=== PATIENT | female | born 2000 | race African-American/Black ===

== ENCOUNTER 2021-11-12 18:54 | Day surgery (SDC) | payer OTHER ==
[2021-11-12 19:26] VITALS: BMI 37.3
[2021-11-12] MEDS ORDERED: hydrALAZINE 20 MG/ML VIAL SLOW IVP PRN (20:11)
[2021-11-12] MEDS ORDERED: Lactated Ringer's 1,000 ML IV SCH (20:15)
[2021-11-12 20:43] LABS: #Monocytes 0.4 10x3/uL (0.0-1.1); #Neutrophils 5.8 10x3/uL (1.5-8.4); %Basophils 0.1 % (0.0-2.0); %Eosinophils 0.4 % (0.0-6.0); %Lymphocytes 11.3 % (18.0-47.0); %Monocytes 6.1 % (0.0-10.0); %Neutrophils 81.7 % (40.0-75.0); Hemoglobin 11.5 g/dL (12.0-15.5); Mean Corpuscular Hemoglobin 28.8 pg (27.0-33.0); Mean Corpuscular Volume 84.5 fl (81.6-98.3); Mean Platelet Volume 11.3 fl (7.4-10.4); Platelet Count 218 10x3/uL (150-450); RBC Distribution Width 13.5 % (11.5-14.5); White Blood Cell (WBC) Count 7.1 10x3/uL (3.5-10.5)
[2021-11-12] MEDS ORDERED: Ondansetron PF 4 MG/2 ML Vial ONE (20:44)
[2021-11-12 20:58] LABS: ALT (SGPT) 11 U/L (8-55); AST (SGOT) 20 U/L (5-34); Albumin 3.8 g/dL (3.5-5.0); Alkaline Phosphatase 106 U/L (40-100); Anion Gap 16 mmol/L (10-20); BUN (Urea Nitrogen) 5 mg/dL (7.0-18.7); Bilirubin, Total 0.3 mg/dL (0.2-1.2); Calc. Creatinine Clearance 205 mL/min (70-130); Calcium 9.3 mg/dL (7.8-10.44); Carbon Dioxide 20 mmol/L (22-29); Chloride 104 mmol/L (98-107); Glucose 82 mg/dL (70-105); Potassium 4.1 mmol/L (3.5-5.1); Protein, Total 6.8 g/dL (6.0-8.3); Sodium 136 mmol/L (136-145)
[2021-11-12 21:29] LABS: SARS-CoV-2 NAA Rapid Test Not Detected (NotDetected)
[2021-11-12 22:03] LABS: Bilirubin Neg (Negative); Blood, Urine Negative (Negative); Clarity Clear (Clear); Glucose, Urine (Dipstick) Normal (Negative); Ketone, Urine 5 mg/dL (Negative); Leukocyte Negative (Negative); Nitrite Negative (Negative); Protein, Urine (Dipstick) 15 mg/dl (Neg-Trace); Specific Gravity, Urine 1.005 (1.002-1.036); Urobilinogen Normal mg/dL (Less than 2)
[2021-11-12 22:11] LABS: Amphetamine Not Detected (NotDetected); Barbiturates Screen Not Detected (NotDetected); Benzodiazepine Screen Not Detected (NotDetected); Cocaine Metabolite Screen Not Detected (NotDetected); Methadone Not Detected (NotDetected); Methamphetamine Not Detected (NotDetected); Opiate Screen Not Detected (NotDetected); Oxycodone Screen Not Detected (NotDetected); Phencyclidine (PCP) Not Detected (NotDetected); THC/Cannabinoid Screen Not Detected (NotDetected); Tricyclic Screen Not Detected (NotDetected)
[2021-11-12 22:40] LABS: Bacteria/HPF 1+ HPF (None Seen); Mucous/LPF 1+ LPF (<2+); RBC/HPF None Seen HPF (0-3); WBC/HPF 0-3 HPF (0-3)
== END 2021-11-12 23:42 | disposition home or self-care (01) ==
LOC: CSHLD/OP 18:54
PROVIDERS: ATTEND Obstetrics & Gynecology
DX: O99.283 Endocrine, nutritional and metabolic diseases complicating pregnancy, third trimester (principal); E86.0 Dehydration; Z3A.34 34 weeks gestation of pregnancy; Z79.82 Long term (current) use of aspirin; Z20.822 Contact with and (suspected) exposure to COVID-19
CPT/HCPCS: 51701; 80053; 80306; 81001; 85025; 96360; 96361; 96375; 99283; J2405

== ENCOUNTER 2021-11-27 18:11 | Day surgery (SDC) | payer OTHER ==
[2021-11-27] MEDS ORDERED: hydrALAZINE 20 MG/ML VIAL SLOW IVP PRN (18:27)
[2021-11-27 18:42] VITALS: BMI 38.5
[2021-11-27] MEDS ORDERED: Calcium Carbonate 500 MG ChewTAB PO PRN (19:27)
[2021-11-27 19:36] LABS: Fetal Membranes Rupture No Membranes Rupture (No Rupture)
== END 2021-11-27 20:11 | disposition home or self-care (01) ==
LOC: CSHLD/OP 18:11
PROVIDERS: ATTEND Obstetrics & Gynecology
DX: O99.891 Other specified diseases and conditions complicating pregnancy (principal); N89.8 Other specified noninflammatory disorders of vagina; O99.513 Diseases of the respiratory system complicating pregnancy, third trimester; J45.909 Unspecified asthma, uncomplicated; Z3A.36 36 weeks gestation of pregnancy; Z79.82 Long term (current) use of aspirin
CPT/HCPCS: 84112; 99285

== ENCOUNTER 2021-11-28 09:34 | Inpatient (IN) | payer OTHER ==
[2021-11-28 10:09] VITALS: BMI 38.5
[2021-11-28] MEDS ORDERED: hydrALAZINE 20 MG/ML VIAL SLOW IVP PRN ×2 (10:24→11:48)
[2021-11-28] MEDS ORDERED: Diphenoxylate HCl/Atropine Tablet PO PRN (11:48)
[2021-11-28] MEDS ORDERED: Carboprost 250 MCG/ML AMP IM PRN (11:48)
[2021-11-28] MEDS ORDERED: Misoprostol 200 MCG TAB PR PRN (11:48)
[2021-11-28] MEDS ORDERED: Ondansetron PF 4 MG/2 ML Vial IVP PRN (11:48)
[2021-11-28] MEDS ORDERED: Methylergonovine 0.2 MG/ML VIAL IM PRN (11:48)
[2021-11-28] MEDS ORDERED: Promethazine HCl 25 MG/ML VIAL IM PRN (11:48)
[2021-11-28] MEDS ORDERED: Lidocaine 1% (PF) 30 ML VIAL SC PRN (11:48)
[2021-11-28] MEDS ORDERED: Butorphanol Tartrate 1 MG/ML VIAL SLOW IVP PRN (11:48)
[2021-11-28] MEDS ORDERED: NS w/ Oxytocin 30 units 500 ML IV SCH ×2 (12:00)
[2021-11-28] MEDS: Lactated Ringer's 1,000 ML IV SCH ×2 (12:30→17:20)
[2021-11-28 12:56] LABS: Hemoglobin 11.2 g/dL (12.0-15.5); Mean Corpuscular HGB CONC 34.7 g/dL (32.0-36.0); Mean Corpuscular Hemoglobin 28.9 pg (27.0-33.0); Mean Corpuscular Volume 83.5 fl (81.6-98.3); Mean Platelet Volume 11.2 fl (7.4-10.4); Platelet Count 240 10x3/uL (150-450); RBC Distribution Width 14.6 % (11.5-14.5); Red Blood Cell (RBC) Count 3.87 10x6/uL (3.90-5.03)
[2021-11-28 13:26] LABS: Syphilis Antibody Nonreactive (Nonreactive); Syphilis Antibody Index 0.02 S/CO (<1.00 Non-Reactive)
[2021-11-28 13:27] LABS: Hep B Surf Ag Non-Reactive S/CO (NonReactive)
[2021-11-28 13:41] LABS: HBSAg Index 0.21 S/CO (0-0.99)
[2021-11-28 13:50] LABS: SARS-CoV-2 NAA Rapid Test Not Detected (NotDetected)
[2021-11-28] MEDS ORDERED: Bupivacaine HCl 0.5%/Epinephrine 1:200,000/PF 30 ml Vial ONE (13:56)
[2021-11-28] MEDS ORDERED: Bupivacaine/Epinephrine 0.25% 30 ML VIAL ONE (13:56)
[2021-11-29] MEDS ORDERED: Fentanyl 2 mcg/Bup 0.1% Cadd 100 ML ONE (01:44)
[2021-11-29] MEDS: Lactated Ringer's 1,000 ML IV SCH (02:10)
[2021-11-29] MEDS: Fentanyl 2 mcg/Bupivacaine 0.1% Cassette 100 ML EPIDURAL SCH ×2 (02:40→08:39)
[2021-11-29] MEDS ORDERED: ePHEDrine Sulfate 50 MG/10 ML VIAL SLOW IVP PRN (02:45)
[2021-11-29] MEDS ORDERED: Moisturizing Cream (Eucerin) 113 GM JAR TOP PRN (02:45)
[2021-11-29] MEDS ORDERED: Promethazine HCl 25 MG/ML VIAL IM PRN ×2 (02:45→11:31)
[2021-11-29] MEDS ORDERED: diphenhydrAMINE 50 MG/ML VIAL IVP PRN (02:45)
[2021-11-29] MEDS ORDERED: Acetaminophen 325 MG TAB PO PRN (02:45)
[2021-11-29] MEDS ORDERED: Ondansetron PF 4 MG/2 ML Vial IVP PRN ×2 (02:45→11:31)
[2021-11-29] MEDS ORDERED: Lactated Ringer's 500 ML IV PRN (02:45)
[2021-11-29] MEDS ORDERED: Communication Order-Pharmacy FS SCH (02:45)
[2021-11-29] MEDS ORDERED: Naloxone HCl 0.4 mg/ml Vial IVP PRN ×2 (02:45)
[2021-11-29 11:31] LABS: HIV (1/2) Antibody/Antigen Non-Reactive (NonReactive); HIV 1/2 INDEX 0.07 S/CO (<1.00)
[2021-11-29] MEDS ORDERED: Milk Of Magnesia 30 ML UDCUP PO PRN (11:31)
[2021-11-29] MEDS ORDERED: NS w/ Oxytocin 30 units 500 ML IV SCH (11:31)
[2021-11-29] MEDS ORDERED: Boostrix 0.5 ML (Tdap) VIAL IM ONE (11:31)
[2021-11-29] MEDS ORDERED: diphenhydrAMINE 25 MG CAP PO PRN (11:31)
[2021-11-29] MEDS ORDERED: hydrALAZINE 20 MG/ML VIAL SLOW IVP PRN (11:31)
[2021-11-29] MEDS ORDERED: Lanolin Ointment 7 GM TUBE TOP PRN (11:31)
[2021-11-29] MEDS ORDERED: HYDROcodone/Acetaminophen 5/325 mg Tablet PO PRN (11:31)
[2021-11-29] MEDS ORDERED: Bisacodyl 10 MG SUPP PR PRN (11:31)
[2021-11-29] MEDS ORDERED: Benzocaine-Menthol 82.5 ML CAN TOP PRN (11:31)
[2021-11-29] MEDS ORDERED: Zolpidem Tartrate 5 MG TAB PO PRN (11:31)
[2021-11-29] MEDS ORDERED: Preparation H Ointment 28 GM TUBE PR PRN (11:31)
[2021-11-29] MEDS: Ibuprofen 800 MG TAB PO SCH ×2 (11:45→20:06)
[2021-11-29] MEDS: HYDROcodone/Acetaminophen 5/325 mg Tablet PO PRN ×2 (13:54→18:50)
[2021-11-29] MEDS: Docusate 100 MG CAP PO SCH (20:06)
[2021-11-30] MEDS: HYDROcodone/Acetaminophen 5/325 mg Tablet PO PRN (00:20)
[2021-11-30] MEDS: Ibuprofen 800 MG TAB PO SCH ×3 (03:54→20:28)
[2021-11-30] MEDS: Docusate 100 MG CAP PO SCH ×2 (08:01→20:29)
[2021-11-30] MEDS: Prenatal Vitamin 1 TAB PO SCH (08:01)
[2021-11-30 22:45] VITALS: TEMP 98.2
[2021-11-30] MEDS ORDERED: hydrOXYzine 25 MG TAB PO SCH (22:45)
[2021-12-01] MEDS: Ibuprofen 800 MG TAB PO SCH ×2 (06:26→14:27)
[2021-12-01] MEDS: Docusate 100 MG CAP PO SCH (09:20)
[2021-12-01] MEDS: Prenatal Vitamin 1 TAB PO SCH (09:20)
[2021-12-01 14:09] VITALS: BP 109/66
== END 2021-12-01 14:55 | disposition home or self-care (01) | DRG 807 ==
LOC: CSHLD/OP 09:34 → CSHLD 13:26 → CSHPP 11-29 12:50
PROVIDERS: ADMIT Obstetrics & Gynecology; ATTEND Obstetrics & Gynecology
PROC: 10E0XZZ Delivery of Products of Conception, External Approach (ICD-10-PCS; principal; 2021-11-29)
PROC: 0KQM0ZZ Repair Perineum Muscle, Open Approach (ICD-10-PCS; 2021-11-29)
PROC: 10907ZC Drainage of Amniotic Fluid, Therapeutic from Products of Conception, Via Natural or Artificial Opening (ICD-10-PCS; 2021-11-29)
PROC: 3E033VJ Introduction of Other Hormone into Peripheral Vein, Percutaneous Approach (ICD-10-PCS; 2021-11-29)
DX: O36.8130 Decreased fetal movements, third trimester, not applicable or unspecified (principal); Z37.0 Single live birth; Z3A.37 37 weeks gestation of pregnancy; Z20.822 Contact with and (suspected) exposure to COVID-19; J45.909 Unspecified asthma, uncomplicated; O99.52 Diseases of the respiratory system complicating childbirth; F32.A Depression, unspecified; F41.9 Anxiety disorder, unspecified; O99.344 Other mental disorders complicating childbirth; O34.83 Maternal care for other abnormalities of pelvic organs, third trimester; N83.209 Unspecified ovarian cyst, unspecified side; Z79.82 Long term (current) use of aspirin; Z79.899 Other long term (current) drug therapy; O26.893 Other specified pregnancy related conditions, third trimester; Z67.41 Type O blood, Rh negative; O76 Abnormality in fetal heart rate and rhythm complicating labor and delivery; O70.1 Second degree perineal laceration during delivery
CPT/HCPCS: 51702; 76819; 85027; 86780; 86850; 86900; 86901; 87340; 87389; 99285; J2405; J2590; J7120; U0002

== ENCOUNTER 2021-12-13 17:04 | Emergency (ER) | payer OTHER ==
[2021-12-13 17:45] LABS: #Eosinphils 0.1 10x3/uL (0.0-0.5); #Monocytes 0.8 10x3/uL (0.0-1.1); #Neutrophils 6.2 10x3/uL (1.5-8.4); %Basophils 0.3 % (0.0-2.0); %Eosinophils 1.4 % (0.0-6.0); %Lymphocytes 18.1 % (18.0-47.0); %Monocytes 8.7 % (0.0-10.0); %Neutrophils 71.3 % (40.0-75.0); Hemoglobin 12.3 g/dL (12.0-15.5); Mean Corpuscular HGB CONC 33.9 g/dL (32.0-36.0); Mean Corpuscular Hemoglobin 28.6 pg (27.0-33.0); Mean Corpuscular Volume 84.4 fl (81.6-98.3); Mean Platelet Volume 10.4 fl (7.4-10.4); Platelet Count 302 10x3/uL (150-450); RBC Distribution Width 13.9 % (11.5-14.5); White Blood Cell (WBC) Count 8.7 10x3/uL (3.5-10.5)
[2021-12-13] MEDS ORDERED: Acetaminophen 500 MG TAB ONE (17:50)
[2021-12-13] MEDS ORDERED: Cefepime 1 GM VIAL ONE (17:50)
[2021-12-13 17:58] LABS: Bilirubin Neg (Negative); Blood, Urine 50 (Negative); Clarity Clear (Clear); Glucose, Urine (Dipstick) Normal (Negative); Ketone, Urine 5 mg/dL (Negative); Leukocyte 25 (Negative); Nitrite Negative (Negative); Protein, Urine (Dipstick) 30 mg/dl (Neg-Trace); Urobilinogen Normal mg/dL (Less than 2)
[2021-12-13 18:01] LABS: ALT (SGPT) 24 U/L (8-55); AST (SGOT) 27 U/L (5-34); Albumin 4.2 g/dL (3.5-5.0); Alkaline Phosphatase 109 U/L (40-100); Anion Gap 14 mmol/L (10-20); BUN (Urea Nitrogen) 4 mg/dL (7.0-18.7); Bilirubin, Total 0.4 mg/dL (0.2-1.2); Calc. Creatinine Clearance 0 mL/min (70-130); Calcium 9.5 mg/dL (7.8-10.44); Carbon Dioxide 21 mmol/L (22-29); Chloride 106 mmol/L (98-107); Estimated GFR 107; Globulin 3.3 g/dL (2.4-3.5); Glucose 89 mg/dL (70-105); Lipase 11 U/L (8-78); Potassium 3.2 mmol/L (3.5-5.1); Protein, Total 7.5 g/dL (6.0-8.3); Sodium 138 mmol/L (136-145)
[2021-12-13 18:10] LABS: Squamous Epithelial 0-3 HPF (0-3)
[2021-12-13 18:11] LABS: Bacteria/HPF 2+ HPF (None Seen); Mucous/LPF Rare LPF (<2+); RBC/HPF 0-3 HPF (0-3); WBC/HPF 0-3 HPF (0-3)
[2021-12-13 20:51] LABS: SARS-CoV-2 NAA Rapid Test Not Detected (NotDetected)
== END 2021-12-13 21:04 | disposition home or self-care (01) ==
LOC: CSHERS 17:04
DX: O86.4 Pyrexia of unknown origin following delivery (principal); O90.89 Other complications of the puerperium, not elsewhere classified; R11.2 Nausea with vomiting, unspecified; R19.7 Diarrhea, unspecified; J45.909 Unspecified asthma, uncomplicated
CPT/HCPCS: 80053; 81003; 81015; 83605; 83690; 85025; 87040; 87086; 93005; 96365; 96366; 96367; J0692; J3370

== ENCOUNTER 2022-01-12 03:23 | Emergency (ER) | payer OTHER ==
[2022-01-12] MEDS ORDERED: Morphine 4 MG/ML VIAL ONE (04:06)
[2022-01-12] MEDS ORDERED: Ondansetron PF 4 MG/2 ML Vial ONE (04:06)
[2022-01-12 04:13] LABS: Bilirubin Neg (Negative); Blood, Urine Negative (Negative); Clarity Slightly Cloudy (Clear); Glucose, Urine (Dipstick) Normal (Negative); Ketone, Urine 5 mg/dL (Negative); Leukocyte Negative (Negative); Nitrite Negative (Negative); Protein, Urine (Dipstick) Negative (Neg-Trace)
[2022-01-12 04:26] LABS: #Eosinphils 0.1 10x3/uL (0.0-0.5); #Monocytes 0.6 10x3/uL (0.0-1.1); %Basophils 0.4 % (0.0-2.0); %Lymphocytes 44.3 % (18.0-47.0); %Monocytes 9.2 % (0.0-10.0); Hemoglobin 12.1 g/dL (12.0-15.5); Mean Corpuscular HGB CONC 33.7 g/dL (32.0-36.0); Mean Corpuscular Hemoglobin 28.5 pg (27.0-33.0); Mean Corpuscular Volume 84.5 fl (81.6-98.3); Mean Platelet Volume 10.4 fl (7.4-10.4); Platelet Count 314 10x3/uL (150-450); RBC Distribution Width 13.2 % (11.5-14.5); Red Blood Cell (RBC) Count 4.25 10x6/uL (3.90-5.03); White Blood Cell (WBC) Count 6.9 10x3/uL (3.5-10.5)
[2022-01-12 04:34] LABS: ALT (SGPT) 21 U/L (8-55); AST (SGOT) 24 U/L (5-34); Alkaline Phosphatase 85 U/L (40-100); Anion Gap 15 mmol/L (10-20); BUN (Urea Nitrogen) 5 mg/dL (7.0-18.7); Bilirubin, Total 0.4 mg/dL (0.2-1.2); Calc. Creatinine Clearance 0 mL/min (70-130); Calcium 9.5 mg/dL (7.8-10.44); Carbon Dioxide 23 mmol/L (22-29); Chloride 107 mmol/L (98-107); Estimated GFR 115; Glucose 102 mg/dL (70-105); Lipase 19 U/L (8-78); Potassium 3.5 mmol/L (3.5-5.1); Sodium 141 mmol/L (136-145)
[2022-01-12] MEDS ORDERED: HYDROcodone/Acetaminophen 5/325 mg Tablet ONE (06:02)
== END 2022-01-12 06:03 | disposition home or self-care (01) ==
LOC: CSHERS 03:23
DX: K80.20 Calculus of gallbladder without cholecystitis without obstruction (principal)
CPT/HCPCS: 76705; 80053; 81003; 83690; 85025; 96374; 96375; J2270; J2405

== ENCOUNTER 2022-01-18 16:09 | Emergency (ER) | payer OTHER ==
[2022-01-18 18:04] LABS: #Monocytes 0.4 10x3/uL (0.0-1.1); #Neutrophils 3.1 10x3/uL (1.5-8.4); %Basophils 0.4 % (0.0-2.0); %Eosinophils 0.6 % (0.0-6.0); %Lymphocytes 33.9 % (18.0-47.0); %Monocytes 7.2 % (0.0-10.0); %Neutrophils 57.7 % (40.0-75.0); Hemoglobin 13.2 g/dL (12.0-15.5); Mean Corpuscular HGB CONC 33.4 g/dL (32.0-36.0); Mean Corpuscular Hemoglobin 28.1 pg (27.0-33.0); Mean Platelet Volume 10.4 fl (7.4-10.4); Platelet Count 203 10x3/uL (150-450); RBC Distribution Width 13.2 % (11.5-14.5); White Blood Cell (WBC) Count 5.4 10x3/uL (3.5-10.5)
[2022-01-18] MEDS ORDERED: Acetaminophen 500 MG TAB ONE (18:06)
[2022-01-18] MEDS ORDERED: Ondansetron PF 4 MG/2 ML Vial ONE (18:06)
[2022-01-18 18:09] LABS: BHCG - Serum Negative (NEGATIVE); Pregs Control Background? CLEAR/WHITE (CLR/WHITE); Pregs Control Bar Appear? YES (CONTROL BAR)
[2022-01-18 18:18] LABS: ALT (SGPT) 28 U/L (8-55); AST (SGOT) 34 U/L (5-34); Albumin 4.8 g/dL (3.5-5.0); Alkaline Phosphatase 91 U/L (40-100); Anion Gap 14 mmol/L (10-20); BUN (Urea Nitrogen) 4 mg/dL (7.0-18.7); Bilirubin, Total 0.5 mg/dL (0.2-1.2); Calc. Creatinine Clearance 0 mL/min (70-130); Calcium 10.2 mg/dL (7.8-10.44); Carbon Dioxide 24 mmol/L (22-29); Chloride 104 mmol/L (98-107); Estimated GFR 123; Globulin 3.4 g/dL (2.4-3.5); Glucose 79 mg/dL (70-105); Lipase 13 U/L (8-78); Potassium 3.8 mmol/L (3.5-5.1); Protein, Total 8.2 g/dL (6.0-8.3); Sodium 138 mmol/L (136-145)
[2022-01-18] MEDS ORDERED: Morphine 4 MG/ML VIAL ONE (19:06)
== END 2022-01-18 19:44 | disposition home or self-care (01) ==
LOC: CSHERS 16:09
DX: K80.20 Calculus of gallbladder without cholecystitis without obstruction (principal); J45.909 Unspecified asthma, uncomplicated
CPT/HCPCS: 76705; 80053; 83690; 84703; 85025; 96374; 96375; J2270; J2405